=== PATIENT | male | born 1980 | race Hispanic/Latino ===

== ENCOUNTER 2025-04-08 18:18 | Emergency (ER) | payer OTHER ==
[~2025-04-08] VITALS: Ht 165.1 cm; Wt 97.5 kg
[2025-04-08 18:26] VITALS: BP 126/92; PULSE 64; RESP 18; TEMP 98.1; O2SAT 96
== END 2025-04-08 18:50 | disposition home or self-care (01) ==
LOC: ER 18:18
DX: H60.91 Unspecified otitis externa, right ear (principal)
CPT/HCPCS: 99283